=== PATIENT | male | born 1995 | race Caucasian/White ===

== ENCOUNTER 2019-03-26 19:42 | Emergency (ER) | payer SELFPAY ==
[2019-03-26 19:49] VITALS: BP 162/92; PULSE 74
--- NOTE | 2019-03-26 20:06 | EDM.PDOC ---
ED HPI GENERAL MEDICAL PROBLEM - General Chief Complaint: Chest Pain Stated Complaint: BURNING IN CHEST,LEFT ARM HURTS Time Seen by Provider: 03/26/19 19:54 Source of Information: Reports: Patient History Limitations: Reports: No Limitations - History of Present Illness INITIAL COMMENTS - FREE TEXT/NARRATIVE: CC HPI: This is a 23-year-old male that is being treated for acid reflux. He has burning chest pain and some left arm pain as well. He denies any cocaine amphetamine use or tobacco abuse. There is no family history of heart disease denies any shortness of breath nausea vomiting or diaphoresis. No previous history of any cardiac problems. PMHX/PSHX: Negative Social History: Negative for tobacco, negative for alcohol, negative for street drugs. positive for marijuana Family history: Hypertension ROS: see chart PE: VS afebrile vital signs stable General: No apparent distress Head: Atraumatic normocephalic no lumps bumps or bruises Eyes: EOMI PERRLA Ears: TMs intact no hemotympanum no signs of infection no mastoid tenderness Nose: No epistaxis nares patent no septal wall hematoma Throat: No pharyngeal erythema or exudate no tonsillar enlargement Neck: Supple, no cervical lymphadenopathy Chest wall: No point tenderness Heart: Regular rate and rhythm without murmur gallop or rub Lungs: Clear to auscultation and percussion without rales rhonchi or wheeze Abdomen: Soft nontender nondistended without guarding rigidity or rebound Neck: No spinal point tenderness full range of motion in all 6 directions Back: No spinal paraspinal or CVA tenderness Extremities: full rom through out. no effusions skin: Warm dry intact no rashes neurologic: cranial nerves II through XII intact. No focal motor or sensory deficits noted MDM: Brief history this is a 23-year-old male this been treated for acid reflux who presents with chest pain and left arm pain for 2 days. He denies cocaine or amphetamine abuse cardiac history or family history of cardiac problems. No shortness of breath leg or calf pain pain is burning in character Differential diagnosis: Pulmonary embolism aortic dissection acute coronary syndrome acid reflux cholecystitis pancreatitis pneumonia pneumothorax ED course: EKG was obtained which is normal. No signs of acute coronary syndrome or pulmonary embolism. Patient's respiratory rate is 12 by my count no leg or calf pain or risk factors for PE and is perc rule negative for I do not think this patient has a pulmonary embolism. Symptoms not at all consistent with aortic dissection and pulses in both upper extremities are equal. Do not think this patient is have any acute coronary syndrome and that his EKG is unremarkable. Instead I believe this is pain from acid reflux will encourage the patient to take Maalox. He was administered a GI cocktail here and is feeling better. He is stable for further outpatient evaluation. He has no history of melena or hematemesis Diagnosis: Chest pain, acid reflux Disposition: Home chest Pain Score (Numeric/FACES): 2 - Related Data Allergies Allergy/AdvReac Type Severity Reaction Status Date / Time No Known Allergies Allergy Verified 03/26/19 19:43 Home Meds: Home Meds Omeprazole 20 mg PO DAILY 03/26/19 [History] Past Medical History - Past Health History Medical/Surgical History: Denies Medical/Surgical History Hematologic History: Reports: None - Infectious Disease History Infectious Disease History: Reports: None Social & Family History - Family History Family Medical History: Noncontributory - Tobacco Use Smoking Status *Q: Former Smoker Used Tobacco, but Quit: Yes Month/Year Tobacco Last Used: 2014 - Recreational Drug Use Recreational Drug Use: Yes Recreational Drug Type: Reports: Marijuana/Hashish ED ROS GENERAL - Review of Systems Review Of Systems: Comprehensive ROS is negative, except as noted in HPI. ED EXAM, GENERAL - Physical Exam Exam: See Below Free Text/Narrative:: See my dictation Course - Vital Signs Last Recorded V/S: Last Vital Signs Temp 36.3 C 03/26/19 19:45 Pulse 74 03/26/19 19:45 Resp 18 03/26/19 19:45 BP 162/92 H 03/26/19 19:45 Pulse Ox 96 03/26/19 19:45 - Orders/Labs/Meds Orders: Active Orders 24 hr Category Date Time Status EKG Documentation Completion [RC] STAT Care 03/26/19 19:57 Active Departure - Departure Time of Disposition: 20:06 Disposition: Home, Self-Care 01 Condition: Good Clinical Impression: Gastroesophageal reflux disease Qualifiers: Esophagitis presence: with esophagitis Qualified Code(s): K21.0 - Gastro- esophageal reflux disease with esophagitis Referrals: PCP,None [Primary Care Provider] - Additional Instructions: You taking your H2 blockers. Take Maalox for breakthrough pain. Follow-up with your primary care doctor soon as possible for further evaluation and treatment. Do not smoke. Sepsis Event Note - Evaluation Sepsis Screening Result: No Definite Risk - Focused Exam Vital Signs: Vital Signs Temp Pulse Resp BP Pulse Ox 03/26/19 19:45 36.3 C 74 18 162/92 H 96 Date Exam was Performed: 03/26/19 Time Exam was Performed: 20:00 - My Orders Last 24 Hours: My Active Orders 03/26/19 19:57 EKG Documentation Completion [RC] STAT - Assessment/Plan Last 24 Hours: My Active Orders 03/26/19 19:57 EKG Documentation Completion [RC] STAT
== END 2019-03-26 20:15 | disposition home or self-care (01) ==
LOC: MW.ED 19:42
DX: K21.0 Gastro-esophageal reflux disease with esophagitis (principal); Z79.899 Other long term (current) drug therapy; Z87.891 Personal history of nicotine dependence
CPT/HCPCS: 93005; 99284-25

== ENCOUNTER 2019-03-27 20:11 | Emergency (ER) | payer SELFPAY ==
[2019-03-27 21:05] VITALS: BP 137/72; PULSE 79
--- NOTE | 2019-03-27 21:11 | EDM.PDOC ---
ED HPI GENERAL MEDICAL PROBLEM - General Chief Complaint: Genitourinary Problem Stated Complaint: PENIS PAIN Time Seen by Provider: 03/27/19 21:04 Source of Information: Reports: Patient - History of Present Illness INITIAL COMMENTS - FREE TEXT/NARRATIVE: NKECHI HPI: This is a 23-year-old male with bilateral testicular pain for 1 day no urethral discharge dysuria flank pain or hematuria. No trauma to the area no scrotal swelling no fever PMHX/PSHX: Negative Social History: Negative for tobacco, negative for alcohol, negative for street drugs or marijuana Family history: Hypertension ROS: see chart PE: VS afebrile vital signs stable General: No apparent distress Head: Atraumatic normocephalic no lumps bumps or bruises Eyes: EOMI PERRLA Ears: TMs intact no hemotympanum no signs of infection no mastoid tenderness Nose: No epistaxis nares patent no septal wall hematoma Throat: No pharyngeal erythema or exudate no tonsillar enlargement Neck: Supple, no cervical lymphadenopathy Chest wall: No point tenderness Heart: Regular rate and rhythm without murmur gallop or rub Lungs: Clear to auscultation and percussion without rales rhonchi or wheeze Abdomen: Soft nontender nondistended without guarding rigidity or rebound Neck: No spinal point tenderness full range of motion in all 6 directions Back: No spinal paraspinal or CVA tenderness Extremities: full rom through out. no effusions skin: Warm dry intact no rashes neurologic: cranial nerves II through XII intact. No focal motor or sensory deficits noted Genitalia: Normal testicles no scrotal edema no scrotal tenderness no epididymal tenderness normal lie normal cremasteric reflex patient is not circumcised. No urethral discharge. Retracted head of the penis is normal. No ulcerations. MDM: Differential diagnosis: I considered testicular torsion tumor mass epididymitis ureterolithiasis I find no evidence of any of these entities. ED course: Patient referred to a urologist in the near future. No indication for imaging at this time. I do not think this patient has a testicular tumor because he has pain in both testicles at the same time. I do not see any evidence likewise of torsion. Patient denies any unprotected sex and and shows no signs of urethritis or urethral discharge or other STDs Diagnosis: Lateral testicular pain Disposition: Home Bilateral Testicles Pain Score (Numeric/FACES): 4 - Related Data Allergies Allergy/AdvReac Type Severity Reaction Status Date / Time No Known Allergies Allergy Verified 03/27/19 21:05 Home Meds: Home Meds Omeprazole 20 mg PO DAILY 03/26/19 [History] Past Medical History - Past Health History Medical/Surgical History: Denies Medical/Surgical History Hematologic History: Reports: None - Infectious Disease History Infectious Disease History: Reports: None Social & Family History - Family History Family Medical History: Noncontributory ED ROS GENERAL - Review of Systems Review Of Systems: Comprehensive ROS is negative, except as noted in HPI. ED EXAM, RENAL/ - Physical Exam Exam: See Below Text/Narrative:: See my dictation Course - Vital Signs Last Recorded V/S: Last Vital Signs Temp 36.4 C 03/27/19 21:02 Pulse 79 03/27/19 21:02 Resp 18 03/27/19 21:02 BP 137/72 03/27/19 21:02 Pulse Ox 96 03/27/19 21:02 Departure - Departure Time of Disposition: 21:10 Disposition: Home, Self-Care 01 Clinical Impression: Testicular pain - Discharge Information Referrals: PCP,None [Primary Care Provider] - Vera Patel MD [Physician] - Additional Instructions: Try wearing snug fitting underwear follow-up with the above-mentioned urologist as needed for ongoing pain. Sepsis Event Note - Evaluation Sepsis Screening Result: No Definite Risk - Focused Exam Vital Signs: Vital Signs Temp Pulse Resp BP Pulse Ox 03/27/19 21:02 36.4 C 79 18 137/72 96 Date Exam was Performed: 03/27/19 Time Exam was Performed: 21:06
== END 2019-03-27 21:28 | disposition home or self-care (01) ==
LOC: MW.ED 20:11
DX: N50.812 Left testicular pain (principal); N50.811 Right testicular pain
CPT/HCPCS: 99283

== ENCOUNTER 2020-10-24 23:32 | Emergency (ER) | payer SELFPAY ==
[2020-10-24 23:56] VITALS: BP 151/78; PULSE 97
[2020-10-25] MEDS ORDERED: Ketorolac 30 MG/ML SDV IM ONE (00:09)
--- NOTE | 2020-10-25 00:11 | EDM.PDOC ---
ED HPI GENERAL MEDICAL PROBLEM - General Chief Complaint: Upper Extremity Injury/Pain Stated Complaint: NECK PAIN Time Seen by Provider: 10/25/20 00:05 - History of Present Illness INITIAL COMMENTS - FREE TEXT/NARRATIVE: History of present illness: [] Patient has pain in the left side of the neck and left shoulder. Is worse with movement. Is fairly severe. 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 The patient had prior neck and spine problems in the past but never severe neck pain like this. He woke up with his neck feel like it is hard to move properly and had pain this morning. Review of systems: As per history of present illness and below otherwise all systems reviewed and negative. Past medical history: As per history of present illness and as reviewed below otherwise noncontributory. Surgical history: As per history of present illness and as reviewed below otherwise noncontributory. Social history: No reported history of drug or alcohol abuse. Family history: As per history of present illness and as reviewed below otherwise noncontributory. Physical exam: Constitutional - well developed, well-nourished and in no acute distress HEENT - normocephalic, no evidence of trauma - external nose and mouth normal - no mass in neck and no JVD - mucosae moist EYES - full EOM, PERRL, no icterus - no evidence of inflammation, injection, or drainage Respiratory - no respiratory distress, equal bilateral expansion, lungs clear to auscultation and no abnormal lung sounds Cardiovascular - Regular Rhythm with S1 and S2 appreciated and no murmur, gallop or rub. GI - abdomen soft without distension or organomegaly - normal bowel sounds - no guard or rebound Musculoskeletal tenderness to the trapezius muscle, left lateral posterior neck muscles, and left deltoid. Pain with range of motion of the neck and the left shoulder. No gross deformity of long bones or joints - no tenderness, swelling or edema Neurologic -median ulnar and radial sensory motor exam in the left upper extremity intact. Alert and oriented times four - CN II-XII grossly intact - motor sensory and coordination symmetrically normal Psychiatric - appropriate mood and affect with normal thought content Hematologic - No petechiae or purpura - mucosa appropriate color and sclera not pale - normal nail bed color and refill Integument - no rash or evidence of trauma - normal turgor Diagnostics: [] Therapeutics: [] Impression: [] Plan: [] Definitive disposition and diagnosis as appropriate pending reevaluation and review of above. Left Neck Pain Score (Numeric/FACES): 7 - Related Data Allergies Allergy/AdvReac Type Severity Reaction Status Date / Time No Known Allergies Allergy Verified 03/27/19 21:05 Home Meds: Home Meds Omeprazole 20 mg PO DAILY 03/26/19 [History] Cyclobenzaprine [Flexeril] 10 mg PO TID PRN #15 tab 10/25/20 [Rx] Past Medical History - Past Health History Medical/Surgical History: Denies Medical/Surgical History Hematologic History: Reports: None - Infectious Disease History Infectious Disease History: Reports: None Social & Family History - Family History Family Medical History: No Pertinent Family History - Caffeine Use Caffeine Use: Reports: Coffee - Recreational Drug Use Recreational Drug Use: Yes Recreational Drug Type: Reports: Marijuana/Hashish Review of Systems - Review of Systems Review Of Systems: Comprehensive ROS is negative, except as noted in HPI. ED EXAM, GENERAL - Physical Exam Exam: See Below Free Text/Narrative:: My physical exam is in the HPI Course - Vital Signs Last Recorded V/S: Last Vital Signs Temp 36.4 C 10/24/20 23:52 Pulse 97 10/24/20 23:52 Resp 18 10/24/20 23:52 BP 151/78 H 10/24/20 23:52 Pulse Ox 96 10/24/20 23:52 - Orders/Labs/Meds Orders: Active Orders 24 hr Category Date Time Status Cervical Spine 2V or 3V [CR] Stat Exams 10/25/20 00:09 Taken Shoulder Comp Lt [CR] Stat Exams 10/25/20 00:09 Taken Meds: Medications Discontinued Medications Generic Name Dose Route Start Last Admin Trade Name Freq PRN Reason Stop Dose Admin Cyclobenzaprine HCl 10 mg 10/25/20 01:19 Cyclobenzaprine 10 Mg Tab PO 10/25/20 01:20 ONETIME ONE Ketorolac Tromethamine 30 mg 10/25/20 00:09 10/25/20 00:23 Ketorolac 30 Mg/Ml Sdv IM 10/25/20 00:10 30 mg ONETIME ONE Administration Departure - Departure Time of Disposition: 01:20 Disposition: Home, Self-Care 01 Condition: Good Clinical Impression: Neck muscle spasm - Discharge Information Prescriptions: Cyclobenzaprine [Flexeril] 10 mg PO TID PRN #15 tab PRN Reason: Muscle Spasm - Painful Instructions: Muscle Cramps and Spasms, [id number] Referrals: PCP,None [Primary Care Provider] - Forms: ED Department Discharge Additional Instructions: Take anti-inflammatory medicine in addition to the muscle relaxer. [facility] [address] [place] [id number] [facility] [address] [place] [id number] The following information is given to patients seen in the emergency department who are being discharged to home. This information is to outline your options for follow-up care. We provide all patients seen in our emergency department with a follow-up referral. The need for follow-up, as well as the timing and circumstances, are variable depending upon the specifics of your emergency department visit. If you don't have a primary care physician on staff, we will provide you with a referral. We always advise you to contact your personal physician following an emergency department visit to inform them of the circumstance of the visit and for follow-up with them and/or the need for any referrals to a consulting specialist. The emergency department will also refer you to a specialist when appropriate. This referral assures that you have the opportunity for follow-up care with a specialist. All of these measure are taken in an effort to provide you with optimal care, which includes your follow-up. Under all circumstances we always encourage you to contact your private physician who remains a resource for coordinating your care. When calling for follow-up care, please make the office aware that this follow-up is from your recent emergency room visit. If for any reason you are refused follow-up, please contact the [facility] Emergency Department at and asked to speak to the emergency department charge nurse. Sepsis Event Note (ED) - Focused Exam Vital Signs: Vital Signs Temp Pulse Resp BP Pulse Ox 10/24/20 23:52 36.4 C 97 18 151/78 H 96 - My Orders Last 24 Hours: My Active Orders 10/25/20 00:09 Cervical Spine 2V or 3V [CR] Stat Shoulder Comp Lt [CR] Stat - Assessment/Plan Last 24 Hours: My Active Orders 10/25/20 00:09 Cervical Spine 2V or 3V [CR] Stat Shoulder Comp Lt [CR] Stat
[2020-10-25] MEDS ORDERED: Cyclobenzaprine 10 MG Tab PO ONE (01:19)
--- NOTE | 2020-10-25 01:28 | CR ---
Indication: Pain after injury Technique: Three views left shoulder Comparison: None Findings: Bones: Alignment is normal. No fractures or bone lesions. Joint spaces: Unremarkable. Soft tissues: Unremarkable. Impression: Negative. Dictated by Moni Carrillo MD @ 10/25/2020 1:26:43 AM (Electronically Signed)
--- NOTE | 2020-10-25 01:29 | CR ---
INDICATION: Pain after injury TECHNIQUE: Cervical spine 3 view. COMPARISON: None FINDINGS: Lateral view includes the skull base to the T1 superior endplate. Bones: Alignment is normal. No fractures or significant bone lesions. Joints: Disc spaces and facets are unremarkable. Soft tissues: Unremarkable. IMPRESSION: Unremarkable cervical spine. Dictated by Moni Carrillo MD @ 10/25/2020 1:28:26 AM (Electronically Signed)
== END 2020-10-25 01:27 | disposition home or self-care (01) ==
LOC: MW.ED 23:32
DX: M62.838 Other muscle spasm (principal)
CPT/HCPCS: 72040; 73030; 96372; 99283; A9270; J1885

== ENCOUNTER 2021-08-14 14:52 | Emergency (ER) | payer SELFPAY ==
[2021-08-14] MEDS ORDERED: Ibuprofen 600 MG Tab PO ONE (15:43)
[2021-08-14 16:27] VITALS: BP 130/68; PULSE 75
== END 2021-08-14 16:26 | disposition home or self-care (01) ==
LOC: MW.ED 14:52
DX: S62.316A Displaced fracture of base of fifth metacarpal bone, right hand, initial encounter for closed fracture (principal); Z79.899 Other long term (current) drug therapy; W22.09XA Striking against other stationary object, initial encounter
CPT/HCPCS: 29125; 73130; 99283; A9270

== ENCOUNTER 2021-08-19 13:14 | Day surgery (SDC) | payer SELFPAY ==
[~2021-08-19 13:14] MED LIST: Albuterol 0.083% 2.5 MG/3 ML Neb Soln NEB PRN; Bupivacaine 0.5% 30 ML SDV ONE; HYDROmorphone 1 MG/ML Syringe IVPUSH PRN; Lactated Ringers 1,000 ML IV SCH; Lidocaine 2% 5 ML SDV ONE; Metoclopramide 10 MG/2 ML SDV IVPUSH PRN; Morphine 2 MG/ML SYRINGE IVPUSH PRN; Naloxone 0.4 MG/ML SDV IVPUSH PRN; Ondansetron 4 MG/2 ML SDV IVPUSH PRN; fentaNYL 50 MCG/ML SDV IVPUSH PRN
[2021-08-19] MEDS ORDERED: Lidocaine 2% 5 ML SDV ONE (13:25)
[2021-08-19] MEDS ORDERED: Propofol 200 MG/20 ML SDV ONE ×2 (13:26→14:28)
[2021-08-19] MEDS ORDERED: fentaNYL 100 MCG/2 ML SDV ONE (13:26)
[2021-08-19] MEDS ORDERED: ceFAZolin 2 GM in Premix Bag 1 BAG IV SCH (14:00)
[2021-08-19] MEDS ORDERED: Midazolam 1 MG/ML 2 ML SDV ONE (14:14)
[2021-08-19 15:46] VITALS: BP 128/74; PULSE 66
== END 2021-08-19 15:55 | disposition home or self-care (01) ==
LOC: MW.SDS 13:14
PROVIDERS: ATTEND Orthopaedic Surgery
DX: S62.316A Displaced fracture of base of fifth metacarpal bone, right hand, initial encounter for closed fracture (principal); S39.012A Strain of muscle, fascia and tendon of lower back, initial encounter; S16.1XXA Strain of muscle, fascia and tendon at neck level, initial encounter; G56.00 Carpal tunnel syndrome, unspecified upper limb; I10 Essential (primary) hypertension; E66.9 Obesity, unspecified; K21.9 Gastro-esophageal reflux disease without esophagitis; Z79.1 Long term (current) use of non-steroidal anti-inflammatories (NSAID); Z79.899 Other long term (current) drug therapy; Z87.891 Personal history of nicotine dependence; Z78.9 Other specified health status; Z68.30 Body mass index [BMI] 30.0-30.9, adult; Z79.83 Long term (current) use of bisphosphonates; X58.XXXA Exposure to other specified factors, initial encounter; W22.8XXA Striking against or struck by other objects, initial encounter
CPT/HCPCS: 26608; 76000; J0690; J2250; J2704; J3010; J3490; J7120; 01820

== ENCOUNTER → 2022-03-28 | Day surgery (SDC) | payer SELFPAY ==
[~2022-03-28] MED LIST changes: -Albuterol 0.083% 2.5 MG/3 ML Neb Soln NEB PRN; -Bupivacaine 0.5% 30 ML SDV ONE; -HYDROmorphone 1 MG/ML Syringe IVPUSH PRN; -Metoclopramide 10 MG/2 ML SDV IVPUSH PRN; -Morphine 2 MG/ML SYRINGE IVPUSH PRN; -Naloxone 0.4 MG/ML SDV IVPUSH PRN; -Ondansetron 4 MG/2 ML SDV IVPUSH PRN; +Propofol 200 MG/20 ML SDV ONE; +Sodium Chloride 0.9% 10 ML Syringe FLUSH PRN; +Sodium Chloride 0.9% 2.5 ML Syringe FLUSH PRN; +Sodium Chloride 0.9% 20 ML SDV IV PRN; -fentaNYL 50 MCG/ML SDV IVPUSH PRN
[2022-03-28 14:00] VITALS: BP 119/64; PULSE 83
== END | disposition home or self-care (01) ==
LOC: MW.SDS 11:13
PROVIDERS: ATTEND Surgery
DX: K29.70 Gastritis, unspecified, without bleeding (principal); K21.00 Gastro-esophageal reflux disease with esophagitis, without bleeding; G43.909 Migraine, unspecified, not intractable, without status migrainosus; F41.9 Anxiety disorder, unspecified; E66.9 Obesity, unspecified; G89.29 Other chronic pain; M54.2 Cervicalgia; M54.9 Dorsalgia, unspecified; Z68.32 Body mass index [BMI] 32.0-32.9, adult; Z79.899 Other long term (current) drug therapy; Z98.890 Other specified postprocedural states
CPT/HCPCS: 43239; J2704; J7120; J3490